=== PATIENT | male | born 1980 | race Caucasian/White ===

== ENCOUNTER 2020-01-06 23:29 | Emergency (ER) | payer SELFPAY ==
[~2020-01-06] VITALS: Ht 167.6 cm; Wt 72.0 kg
[2020-01-07] MEDS ORDERED: IBUPROFEN 600MG TABLET PO ONE (01:00)
[2020-01-07 01:15] LABS: HEMATOCRIT. 43.6 % (42.0-52.0); HEMOGLOBIN. 14.5 g/dL (14.0-18.0); MEAN CORPUSCULAR VOLUME 84.1 fL (80.0-94.0); MEAN PLATELET VOLUME 9.2 fl (7.4-10.4); PLATELET 196 x1000/uL (130-400); RED BLOOD CELL COUNT 5.19 mill/uL (4.7-6.1); RED CELL DISTRIBUTION WIDTH 13.2 % (11.6-14.6)
[2020-01-07 01:18] LABS: CHLORIDE 106 mEq/L (98-107)
[2020-01-07 02:07] VITALS: BP 105/72
[2020-01-07 02:23] LABS: PLATELET ESTIMATE NORMAL
== END 2020-01-07 02:11 | disposition home or self-care (01) ==
LOC: ER 23:29
DX: J06.9 Acute upper respiratory infection, unspecified (principal); R05 Cough
CPT/HCPCS: 36415; 71045; 80053; 84484; 85025; 99284